=== PATIENT | female | born 1960 | race African-American/Black ===

== ENCOUNTER 2016-09-05 17:05 | Emergency (ER) | payer MEDICAID ==
[~2016-09-05] VITALS: Ht 160 cm; Wt 97.5 kg
[~2016-09-05 17:05] MED LIST: AMITRIPTYLINE H25 MG ORAL; ASPIRIN81 MG ORAL; AUGMENTIN 500-1 EACH ORAL; CIPROFLOXACIN500 M2 ORAL; IBUPROFEN600 MG ORAL; MIRTAZAPINE15 M3 ORAL; NAPROXEN375 M2 ORAL; NORCO 5-325 TA1 EACH ORAL; SIMVASTATIN5 MG ORAL; TRAMADOL HCL50 MG ORAL; VALIUM5 MG ORAL
[2016-09-05] MEDS ORDERED: Ketorolac 30mg Inj IM ONE (17:30)
[2016-09-05] MEDS ORDERED: Methocarbamol 750mg tab ORAL ONE (17:30)
[2016-09-05 18:30] VITALS: BP 115/75
[2016-09-05 19:02] VITALS: BP 115/75
--- NOTE | 2016-09-07 13:00 | Emergency Room Report ---
History of Present Illness General Chief Complaint: Back Pain-No Injury Source: Patient Present Illness HPI The patient is a 56 old female with history of chronic low back pain due to DJD and spinal stenosis presenting for lower back pain. The patient states that she usually takes tramadol and gabapentin for prescribed by her primary doctor but these medications have not been helping. It is described as a 9/10 dull ache to the mid lower back and radiates down the back of both legs. Pain worse with movement such as bending over and walking. She denies any recent injury that may have provoked this. She denies any other symptoms including numbness/ tingling, N, V, F, chills, CP, SOB, abd pain Allergies: Coded Allergies: No Known Allergies (Unverified , 01/03/13) Patient History Past Medical History: see triage record Pertinent Family History: none Reviewed Nursing Documentation: PMH: Agreed, PSxH: Agreed Nursing Documentation-PM Past Medical History: No History, Except For Hx Cardiac Problems: Yes - High Cholesterol, Hypothyroidism Review of Systems All Other Systems: negative except mentioned in HPI Physical Exam Vital Signs Date Time Temp Pulse Resp B/P Pulse Ox O2 Delivery O2 Flow Rate FiO2 09/05/16 17:16 98.1 74 16 119/78 100 Room Air Sp02 EP Interpretation: reviewed, normal General Appearance: no apparent distress, alert, GCS 15, non-toxic Head: normocephalic, atraumatic Eyes: bilateral eye PERRL, bilateral eye normal inspection Respiratory: chest non-tender, lungs clear, normal breath sounds, speaking full sentences Cardiovascular #1: regular rate, rhythm, no edema Musculoskeletal: back normal, gait/station normal, normal range of motion, tender - TTP over bilat lumbar paraspinous muscles Neurologic: alert, oriented x3, responsive, motor strength/tone normal, sensory intact, speech normal Psychiatric: judgement/insight normal, memory normal, mood/affect normal, no suicidal/homicidal ideation Skin: normal color, no rash, warm/dry, well hydrated Lymphatic: no adenopathy Medical Decision Making PA Attestation Dr. Smith is my supervising physician. Patient management was discussed with my supervising physician Diagnostic Impression: Primary Impression: Chronic lower back pain Qualified Codes: M54.5 - Low back pain; G89.29 - Other chronic pain ER Course The patient is a 56 old female with history of chronic low back pain presenting for lower back pain. Ddx considered include but not limited to lumbar strain, degenerative disease, chronic pain, narcotic dependency. PE: vitals WNL. NAD There is TTP over bilat lumbar paraspinous muscles. No midline tenderness. Normal gait. CURES report recent prescriptions for pain medications by pain management. Pt was informed of this. She is given Toradol and robaxin for pain and is feeling better. ER precautions given Last Vital Signs Date Time Temp Pulse Resp B/P Pulse Ox O2 Delivery O2 Flow Rate FiO2 09/05/16 19:02 98.0 77 16 115/75 99 Room Air Status: improved Disposition: HOME, SELF-CARE Condition: Improved Referrals: [facility],REFERRING (PCP) Patient Instructions: Back Pain, Adult Additional Instructions: I discussed my findings with the patient. All questions and concerns have been answered. Treatment and medication compliance have been addressed. I advised the patient that they need to follow up with PMD in 3-5 days. Return to ED if symptoms worsen, new symptoms arise, or if needed for any reason. Patient verbalized understanding of discharge instructions. Please follow up with pain management HARPER DE DIOS September 07, 2016 13:00
== END 2016-09-05 19:02 | disposition home or self-care (01) ==
LOC: EMR 17:50
DX: G89.29 Other chronic pain (principal); M54.5 Low back pain; M48.00 Spinal stenosis, site unspecified; M19.90 Unspecified osteoarthritis, unspecified site
CPT/HCPCS: 96372; 99283; J1885

== ENCOUNTER 2016-12-25 18:11 | Emergency (ER) | payer MEDICAID ==
[~2016-12-25] VITALS: Ht 160 cm; Wt 92.1 kg
[2016-12-25] MEDS ORDERED: Methocarbamol 750mg tab ORAL ONE (18:45)
[2016-12-25] MEDS ORDERED: Ketorolac 60mg Inj IM ONE (18:45)
[2016-12-25] MEDS ORDERED: IBUPROFEN600 MG ORAL (20:17)
[2016-12-25] MEDS ORDERED: ROBAXIN-750750 MG PO (20:17)
[2016-12-25 20:20] VITALS: BP 134/72
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
--- NOTE | 2016-12-26 10:46 | Diagnostic Imaging Report ---
Indication: PAIN Technique: 3 views of the right knee Comparison: None Findings:There are medial osteophytes. Is minimal medial compartmental degenerative joint space narrowing. No acute fractures. No dislocations. No suprapatellar effusion. There are patellofemoral osteophytes. Impression:Degenerative changes. No acute bony trauma
--- NOTE | 2016-12-26 10:47 | Diagnostic Imaging Report ---
Indication: PAIN Technique: 3 views of the left knee Comparison: None Findings:There are medial and lateral compartment osteophytes. Joint spaces are preserved. No acute fractures. No dislocations. No suprapatellar effusion. Impression:Mild degenerative changes. No acute bony trauma
== END 2016-12-25 20:20 | disposition home or self-care (01) ==
LOC: EMR 18:25
DX: T14.8 Other injury of unspecified body region (principal); V43.52XA Car driver injured in collision with other type car in traffic accident, initial encounter; Y93.9 Activity, unspecified; Y92.410 Unspecified street and highway as the place of occurrence of the external cause; M25.562 Pain in left knee; M25.561 Pain in right knee; M25.762 Osteophyte, left knee; M25.761 Osteophyte, right knee
CPT/HCPCS: 72125; 96372; 99284

== ENCOUNTER 2017-01-25 18:08 | Emergency (ER) | payer MEDICAID ==
[~2017-01-25] VITALS: Ht 160 cm; Wt 90.7 kg
[~2017-01-25 18:08] MED LIST changes: +ROBAXIN-750750 MG PO
[2017-01-25 19:10] VITALS: BP 148/88
[2017-01-25] MEDS ORDERED: Ketorolac 60mg Inj IM ONE (19:15)
[2017-01-25] MEDS ORDERED: Norco 5mg/325mg tab ORAL ONE (20:00)
[2017-01-25] MEDS ORDERED: ACETAMINOPHEN-1 EAC1 ORAL (20:28)
[2017-01-25] MEDS ORDERED: IBUPROFEN600 MG ORAL (20:28)
[2017-01-25 20:34] VITALS: BP 129/88
--- NOTE | 2017-01-25 21:04 | Emergency Room Report ---
History of Present Illness General Chief Complaint: Back Pain-No Injury Source: Patient Present Illness HPI The patient is a 56 old female presenting for back pain. She states that she has a chronic history of back pain but has not been prescribed medications. She was seen in this emergency department recently and given prescription for Motrin and Robaxin which she states did not help. She states that ice pack help sent home. Pain is an 8/10 dull ache to the mid back and is worse with movement. She denies any radiating pain. She denies any numbness or tingling. She denies any other symptoms Allergies: Coded Allergies: No Known Allergies (Unverified , 01/03/13) Patient History Past Medical History: see triage record Pertinent Family History: none Reviewed Nursing Documentation: PMH: Agreed, PSxH: Agreed Nursing Documentation-PMH Hx Cardiac Problems: Yes - High Cholesterol, Hypothyroidism Review of Systems All Other Systems: negative except mentioned in HPI Physical Exam Vital Signs Date Time Temp Pulse Resp B/P (MAP) Pulse Ox O2 Delivery O2 Flow Rate FiO2 01/25/17 18:38 98.2 70 16 148/88 100 Room Air Sp02 EP Interpretation: reviewed, normal General Appearance: no apparent distress, alert, GCS 15, non-toxic Head: normocephalic, atraumatic Eyes: bilateral eye normal inspection, bilateral eye PERRL ENT: hearing grossly normal, normal pharynx, no angioedema, normal voice Neck: full range of motion, supple/symm/no masses Respiratory: chest non-tender, lungs clear, normal breath sounds, speaking full sentences Cardiovascular #1: regular rate, rhythm, no edema Musculoskeletal: gait/station normal, tender - TTP over the R thoracic paraspinal muscles Neurologic: alert, oriented x3, responsive, motor strength/tone normal, sensory intact, speech normal Psychiatric: judgement/insight normal, memory normal, mood/affect normal, no suicidal/homicidal ideation Skin: normal color, no rash, warm/dry, well hydrated Lymphatic: no adenopathy Medical Decision Making PA Attestation Dr. Huggins is my supervising physician. Patient management was discussed with my supervising physician Diagnostic Impression: Primary Impression: Chronic lower back pain Qualified Codes: M54.5 - Low back pain; G89.29 - Other chronic pain ER Course The patient is a 56 old female presenting for back pain Ddx considered include but not limited to lumbar strain, degenerative disease, epidural abscess, cauda equina, chronic pain, narcotic dependency. PE: NAD TTP over the R thoracic paraspinal muscles. No step-offs. Normal gait The patient is given Toradol initially and states pain has not decreased. She is then given one [place] She will be DC'ed home and needs to FU with PMD. She states she has appt on 01/28. ER precautions given Last Vital Signs Date Time Temp Pulse Resp B/P (MAP) Pulse Ox O2 Delivery O2 Flow Rate FiO2 01/25/17 20:34 98.2 73 16 129/88 100 Room Air Status: improved Disposition: HOME, SELF-CARE Condition: Improved Scripts Acetaminophen With Codeine (T#3) (TYLENOL #3 TAB*) Y Tab 1 TAB ORAL Q6HR Y for For Pain, #15 TAB Prov: HARPER DE DIOS 01/25/17 Ibuprofen* (MOTRIN*) 600 Mg Tablet 600 MG ORAL Q8H Y for For Pain, #30 TAB 0 Refills Prov: HARPER DE DIOS 01/25/17 Patient Instructions: Back Pain, Adult Additional Instructions: I discussed my findings with the patient. All questions and concerns have been answered. Treatment and medication compliance have been addressed. I advised the patient that they need to follow up with PMD in 3-5 days. Return to ED if symptoms worsen, new symptoms arise, or if needed for any reason. Patient verbalized understanding of discharge instructions. HARPER DE DIOS Jan 25, 2017 21:04
== END 2017-01-25 20:34 | disposition home or self-care (01) ==
LOC: EMR 19:08
DX: M54.5 Low back pain (principal); G89.29 Other chronic pain; E03.9 Hypothyroidism, unspecified
CPT/HCPCS: 96372; 99284

== ENCOUNTER 2017-12-17 12:56 | Emergency (ER) | payer MEDICAID ==
[~2017-12-17] VITALS: Ht 160 cm; Wt 99.8 kg
[~2017-12-17 12:56] MED LIST changes: +ACETAMINOPHEN-1 EAC1 ORAL
[2017-12-17 13:24] VITALS: BP 141/72
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
[2017-12-17] MEDS ORDERED: Lidocaine 1% MPF 10mg/ml 5ml IM ONE (13:45)
[2017-12-17] MEDS ORDERED: Lidocaine 1% MPF 10mg/ml 5ml ONE (13:51)
[2017-12-17] MEDS ORDERED: Lidocaine 1% MPF 10mg/ml 5ml HHN ONE (14:00)
[2017-12-17] MEDS ORDERED: ALBUTEROL SULF8.5 GM INH (14:53)
[2017-12-17] MEDS ORDERED: TYLENOL EXTRA500 MG ORAL (14:53)
[2017-12-17 15:49] VITALS: BP 138/76
== END 2017-12-17 15:54 | disposition home or self-care (01) ==
LOC: EMR 13:35
DX: T54.91XA Toxic effect of unspecified corrosive substance, accidental (unintentional), initial encounter (principal); R07.0 Pain in throat; Y92.9 Unspecified place or not applicable; Y92.89 Other specified places as the place of occurrence of the external cause
CPT/HCPCS: 94640; 94664; 99283

== ENCOUNTER 2018-11-22 17:22 | Emergency (ER) | payer MEDICAID ==
[~2018-11-22] VITALS: Ht 160 cm; Wt 97.5 kg
[~2018-11-22 17:22] MED LIST changes: +ALBUTEROL SULF8.5 GM INH; +TYLENOL EXTRA500 MG ORAL
[2018-11-22 17:31] VITALS: BP 134/83
[2018-11-22] MEDS ORDERED: Ketorolac 60mg Inj IM ONE (17:45)
[2018-11-22] MEDS ORDERED: ROBAXIN-750750 MG PO (17:49)
--- NOTE | 2018-11-22 17:49 | Emergency Room Report ---
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 Allergies: Coded Allergies: No Known Allergies (Unverified , 01/03/13) Patient History Past Medical History: see triage record Now: No Reviewed Nursing Documentation: PMH: Agreed; PSxH: Agreed Nursing Documentation-PMH Past Medical History: No History, Except For Hx Cardiac Problems: No - hyperthyroidism, high cholesterol Hx Hypertension: No Hx Pacemaker: No Hx Asthma: No Hx COPD: No Hx Diabetes: No Hx Cancer: No Hx Gastrointestinal Problems: Yes - IBS Hx Dialysis: No Hx Neurological Problems: Yes - chronic pain, osteroarthritis, bulgind disc, DJD Hx Cerebrovascular Accident: No Hx Seizures: No Review of Systems All Other Systems: negative except mentioned in HPI Physical Exam Vital Signs Date Time Temp Pulse Resp B/P (MAP) Pulse Ox O2 Delivery O2 Flow Rate FiO2 11/22/18 17:31 98.2 87 19 134/83 98 Room Air Sp02 EP Interpretation: reviewed, normal General Appearance: well appearing, no apparent distress, alert Head: normocephalic, atraumatic Eyes: bilateral eye PERRL, bilateral eye EOMI ENT: uvula midline, moist mucus membranes Neck: supple, thyroid normal, supple/symm/no masses Respiratory: lungs clear, no respiratory distress, no retraction, no accessory muscle use Cardiovascular #1: normal peripheral pulses, regular rate, rhythm, no edema, no gallop, no murmur Gastrointestinal: non tender, soft, no guarding, no rebound Musculoskeletal: other - Right lower tube backer to palpation, left lower tube backer to palpation, no step-offs, patient able to ambulate without any issues with a cane Neurologic: alert, oriented x3 Psychiatric: mood/affect normal Skin: no rash, warm/dry Medical Decision Making Diagnostic Impression: Primary Impression: Chronic lower back pain ER Course 58-year-old female with chronic lower back pain, requesting a shot of Toradol The patient presents with acute onset of back pain after dancing. Clinically this patient can be ruled out for serious pathology given there is a completely normal neurological exam, no history of IV drug use, and no history of bowel or bladder incontinence, no perianal numbness/tingling, no constipation or urinary retention. Once the patient's pain was adequately controlled, the patient was able to ambulate and be discharged in stable condition with anticipatory guidance provided. Disposition home w/ return precautions Last Vital Signs Date Time Temp Pulse Resp B/P (MAP) Pulse Ox O2 Delivery O2 Flow Rate FiO2 11/22/18 17:31 98.2 87 19 134/83 (100) 98 Room Air Disposition: HOME, SELF-CARE Condition: Improved Scripts Methocarbamol* (ROBAXIN-750*) 750 Mg Tablet 750 MG PO TID, #21 TAB 0 Refills Prov: Dada Miranda MD 11/22/18 Referrals: [facility]. [facility] Patient Instructions: Back Pain, Adult Additional Instructions: The patient was provided with discharge instructions, notified to follow-up with a primary care doctor and or specialist in the next 24-48 hours, and to return to the ED if they have worsening of their symptoms. Please note that this report is being documented using [employer] technology. This can lead to erroneous entry secondary to incorrect interpretation by the dictating instrument. Dada Miranda MD Nov 22, 2018 17:49
[2018-11-22 17:57] VITALS: BP 129/80
--- NOTE | 2018-11-22 17:57 | NUR ---
ER DISCHARGE NOTE: Pt was seen due to lower back pain. Patient is cleared to be discharged per ERMD, pt is aox4, on room air, with stable vital signs. pt was given dc and prescription instructions, pt was able to verbalize understanding, pt id band removed without complications. pt is able to ambulate with steady gait. pt took all belongings.
== END 2018-11-22 17:57 | disposition home or self-care (01) ==
LOC: EMR 17:50
DX: M54.5 Low back pain (principal); G89.29 Other chronic pain; E78.00 Pure hypercholesterolemia, unspecified; M19.90 Unspecified osteoarthritis, unspecified site; K58.9 Irritable bowel syndrome, unspecified
CPT/HCPCS: 96372; 99283

== ENCOUNTER 2019-01-26 10:26 | Emergency (ER) | payer MEDICAID ==
[~2019-01-26] VITALS: Ht 160 cm; Wt 98.4 kg
[2019-01-26] MEDS ORDERED: PREDNISONE50 MG ORAL (10:37)
[2019-01-26] MEDS ORDERED: LEVOTHYROXINE75 MCG ORAL (10:37)
[2019-01-26] MEDS ORDERED: METFORMIN HCL500 M1 ORAL (10:37)
--- NOTE | 2019-01-26 10:42 | NUR ---
ED Nurse Note: Patient walked in to ER c/o generalized pain on her s/p mechanical fall. Per patient she was feeling good in the morning around 09:30 and decided to use serena totter for stretching. The patient forget to check the setting of the machine, unaware that it was set up for advance exerise not for beginning. Patient stated that serena totter went upside down and lost her balance. She hold on to the hand rail. Patient stated that she did not her head or any part of the body and slid all the way down gradually. Noted wth one bruise on her outer upper arm approx 2x2 and small scratch approx 0.1x0.1 on her inner forearm. No dizziness noted at this time. Able to ambulate with the use of cane on her right hand.
[2019-01-26 10:45] VITALS: BP 128/66
--- NOTE | 2019-01-26 11:14 | NUR ---
ED Nurse Note: patient went to the CT room for CT scan of the head and spine with no contrast
--- NOTE | 2019-01-26 11:32 | NUR ---
ED Nurse Note: Patient went back to the room, laying in bed comfortably
--- NOTE | 2019-01-26 12:08 | Diagnostic Imaging Report ---
Indication: Neck pain status post fall Technique: Spiral acquisitions obtained through the cervical spine. No IV contrast utilized. Multiplanar reconstructions were generated. Total dose length product 727 mGycm. CTDIvol(s) 32 mGy. Dose reduction achieved using automated exposure control. Comparison: 12/25/2016 Findings: Bony alignment is normal. Vertebral body heights are preserved. No prevertebral soft tissue swelling. No acute fractures. No dislocations. At C4-5, there is degenerative disc narrowing. There is moderate to severe right and mild left neural foraminal stenosis. No significant disc bulge or protrusion or spinal stenosis. At C5-6, there is degenerative disc narrowing. There is moderate to severe left and mild right neural foraminal stenosis. No significant disc bulge or protrusion or spinal stenosis. At C6-7, there is mild neural foraminal stenosis on the right. At the remaining disc levels, no significant disc bulge or protrusion, spinal stenosis, or neural foraminal stenosis. The included extraspinal soft tissues are unremarkable. When compared to the prior exam, degenerative changes have progressed Impression: No acute bony trauma Degenerative changes as detailed above on a level by level basis The CT scanner at [facility] is accredited by the [employer] and the scans are performed using protocols designed to limit radiation exposure to as low as reasonably achievable to attain images of sufficient resolution adequate for diagnostic evaluation.
--- NOTE | 2019-01-26 12:10 | Diagnostic Imaging Report ---
Indications: Head trauma, pain Technique: Spiral acquisitions obtained through the brain. Angled axial and coronal 5 x 5 mm slices were reconstructed. Total dose length product 1280 mGycm. CTDI vol(s) 16 mGy. Dose reduction achieved using automated exposure control Comparison: 09/26/2010 Findings: No acute intracranial hemorrhage or edema. No mass effect nor midline shift. Normal ontiveros-white differentiation. Normal size ventricles and extra axial CSF spaces. Visualized orbits are unremarkable. The sinuses are clear. The mastoids are clear. No significant interim change Impression: Negative The CT scanner at [facility] is accredited by the [employer] and the scans are performed using protocols designed to limit radiation exposure to as low as reasonably achievable to attain images of sufficient resolution adequate for diagnostic evaluation.
--- NOTE | 2019-01-26 12:33 | Emergency Room Report ---
History of Present Illness General Chief Complaint: Multiple Trauma/Fall Source: Patient, Medical Record Present Illness Allergies: Coded Allergies: No Known Allergies (Unverified , 01/03/13) Patient History Past Medical History: see triage record Last Menstrual Period: menopause Reviewed Nursing Documentation: PMH: Agreed; PSxH: Agreed Nursing Documentation-PMH Past Medical History: No History, Except For Hx Cardiac Problems: No - hyperthyroidism, high cholesterol Hx Hypertension: No Hx Pacemaker: No Hx Asthma: No Hx COPD: No Hx Diabetes: No Hx Cancer: No Hx Gastrointestinal Problems: Yes - IBS Hx Dialysis: No Hx Neurological Problems: Yes - chronic pain, osteroarthritis, bulgind disc, DJD Hx Cerebrovascular Accident: No Hx Seizures: No Review of Systems All Other Systems: negative except mentioned in HPI Physical Exam Vital Signs Date Time Temp Pulse Resp B/P (MAP) Pulse Ox O2 Delivery O2 Flow Rate FiO2 01/26/19 10:31 98.4 76 18 159/85 (109) 98 Room Air Sp02 EP Interpretation: reviewed, normal General Appearance: no apparent distress, alert, non-toxic Head: normocephalic Eyes: bilateral eye normal inspection, bilateral eye PERRL, bilateral eye EOMI ENT: normal ENT inspection, hearing grossly normal, normal pharynx, no angioedema, normal voice, moist mucus membranes Neck: normal inspection, full range of motion, supple, supple/symm/no masses Respiratory: chest non-tender, lungs clear, normal breath sounds, chest symmetrical, palpation of chest normal Cardiovascular #1: normal peripheral pulses, regular rate, rhythm Cardiovascular #2: 2+ radial (R), 2+ radial (L) Gastrointestinal: normal inspection, non tender, soft, no mass, no guarding, no rebound Rectal: deferred Genitourinary: normal inspection, no CVA tenderness Musculoskeletal: back normal, gait/station normal, normal range of motion, non- tender, no calf tenderness, other - No C, T, L-spine deformities tenderness or step-offs Neurologic: alert, responsive, tooling inspector III-XII nml as tested, motor strength/tone normal, sensory intact, speech normal Psychiatric: judgement/insight normal, memory normal, mood/affect normal Skin: no rash, other - No abrasions, contusions Lymphatic: no adenopathy Medical Decision Making Diagnostic Impression: Primary Impression: Muscle strain ER Course Patient reports he suffered a fall, but does not have any visible injuries, and she has chronic pain with pain all over, no signs of trauma, normal exam with no bony tenderness anywhere, normal head and C-spine CT. Will discharge. CT/MRI/US Diagnostic Results CT/MRI/US Diagnostic Results : Imaging Test Ordered: CT head and C-spine Impression No acute disease Last Vital Signs Date Time Temp Pulse Resp B/P (MAP) Pulse Ox O2 Delivery O2 Flow Rate FiO2 01/26/19 10:45 97.8 20 128/66 95 Room Air 01/26/19 10:45 60 Disposition: HOME, SELF-CARE Condition: Stable Referrals: NON PHYSICIAN (PCP) CHEPE RIVERA M.D Jan 26, 2019 12:33
[2019-01-26 12:54] VITALS: BP 166/89
--- NOTE | 2019-01-26 12:56 | NUR ---
ER DISCHARGE NOTE: Patient is cleared to be discharged per ERMD, Pt is aox4, on room ai. Patient was given dc instruction. Patient was able to verbalize understanding. ID band removed. Patient is able to ambulate with steady gait. Patient took all belongings.
== END 2019-01-26 12:57 | disposition home or self-care (01) ==
LOC: EMR 11:10
DX: T14.8XXA Other injury of unspecified body region, initial encounter (principal); M54.2 Cervicalgia; R51 Headache; G89.29 Other chronic pain; E05.90 Thyrotoxicosis, unspecified without thyrotoxic crisis or storm; E78.00 Pure hypercholesterolemia, unspecified; K58.9 Irritable bowel syndrome, unspecified; M19.90 Unspecified osteoarthritis, unspecified site
CPT/HCPCS: 70450; 72125; Z7502; 99284

== ENCOUNTER 2019-04-22 01:28 | Emergency (ER) | payer MEDICAID ==
[~2019-04-22] VITALS: Ht 160 cm; Wt 102.1 kg
[~2019-04-22 01:28] MED LIST changes: +LEVOTHYROXINE75 MCG ORAL; +METFORMIN HCL500 M1 ORAL; +PREDNISONE50 MG ORAL
[2019-04-22 01:43] VITALS: BP 125/69
--- NOTE | 2019-04-22 01:45 | NUR ---
ED Nurse Note: Patient presents as a walk-in with complaints of back pain since .
[2019-04-22] MEDS ORDERED: Ketorolac 60mg Inj IM ONE (02:15)
[2019-04-22] MEDS ORDERED: NORCO 5-325 TA1 EACH ORAL (02:33)
--- NOTE | 2019-04-22 02:33 | Emergency Room Report ---
History of Present Illness General Chief Complaint: Back Pain-No Injury Source: Patient, Medical Record Present Illness HPI This is a 58-year-old female with history of chronic pain from arthritis. 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 She presents with chief complaint of lower back pain. Is a chronic problem but worsened since [place]. She is taking Ultram is not helping much. No trauma. Pain is 8 out of 10. No fever chills but no nausea no vomiting. No radiation of the pain. No incontinence of bowel or urine. Denies fever chills. Pain is 8 out of 10. Worse with movement. Better with rest. Allergies: Coded Allergies: No Known Allergies (Unverified , 01/03/13) Patient History Past Medical History: see triage record, old chart reviewed Past Surgical History: other Pertinent Family History: none Social History: Denies: smoking Immunizations: other Reviewed Nursing Documentation: PMH: Agreed; PSxH: Agreed Nursing Documentation-PMH Hx Cardiac Problems: No - hyperthyroidism, high cholesterol Hx Hypertension: No Hx Pacemaker: No Hx Asthma: No Hx COPD: No Hx Diabetes: No Hx Cancer: No Hx Gastrointestinal Problems: Yes - IBS Hx Dialysis: No Hx Neurological Problems: Yes - chronic pain, osteroarthritis, bulgind disc, DJD Hx Cerebrovascular Accident: No Hx Seizures: No Review of Systems Eye: Denies: eye pain, blurred vision ENT: Denies: ear pain, nose congestion, throat swelling Respiratory: Denies: cough, shortness of breath Cardiovascular: Denies: chest pain, palpitations Gastrointestinal: Denies: abdominal pain, diarrhea, nausea, vomiting Musculoskeletal: Reports: back pain; Denies: joint pain Skin: Denies: rash Neurological: Denies: headache, numbness Endocrine: Denies: increased thirst, increased urine Hematologic/Lymphatic: Denies: easy bruising All Other Systems: negative except mentioned in HPI Physical Exam Vital Signs Date Time Temp Pulse Resp B/P (MAP) Pulse Ox O2 Delivery O2 Flow Rate FiO2 04/22/19 01:34 97.9 98 18 125/69 (87) 96 Room Air Vitals normal Sp02 EP Interpretation: reviewed, normal General Appearance: well appearing, no apparent distress, alert Head: normocephalic, atraumatic Eyes: bilateral eye PERRL, bilateral eye EOMI ENT: hearing grossly normal, normal pharynx Neck: full range of motion, supple, no meningismus Respiratory: chest non-tender, lungs clear, normal breath sounds Cardiovascular #1: regular rate, rhythm, no murmur Gastrointestinal: normal bowel sounds, non tender, no mass, no organomegaly, no bruit, non-distended Musculoskeletal: back normal - Diffuse lower back tenderness, normal range of motion, gait/station normal Psychiatric: mood/affect normal Medical Decision Making Diagnostic Impression: Primary Impression: Low back pain Qualified Codes: M54.5 - Low back pain ER Course Patient with lower back pain. No evidence of cauda equina syndrome, spinal epidural abscess or neoplastic process. Will discharge home. Last Vital Signs Date Time Temp Pulse Resp B/P (MAP) Pulse Ox O2 Delivery O2 Flow Rate FiO2 04/22/19 01:43 97.9 87 18 125/69 96 Room Air Status: improved Disposition: HOME, SELF-CARE Condition: Stable Scripts Hydrocodone Bit/Acetaminophen 5-325* (NORCO 5-325*) 1 Each Tablet 1 TAB ORAL Q6H PRN for For Pain, #20 TAB 0 Refills Prov: Ezekiel Dominguez MD 04/22/19 Patient Instructions: Back Pain, Adult Additional Instructions: Follow-up with your doctor in 7 days. You may benefit from a pain specialist referral. Return if worse. Ezekiel Dominguez MD Apr 22, 2019 02:33
[2019-04-22 02:36] VITALS: BP 125/69
--- NOTE | 2019-04-22 02:36 | NUR ---
ED Nurse Note: Patietn cleared for discharge by ERMD , patient verbalized understanding of discharge instructions. ID band removed. Patient is A&Ox4 and ambulatory with steady gait. Patient departed with all belongings to personal vehicle.
== END 2019-04-22 02:36 | disposition home or self-care (01) ==
LOC: EMR 01:49
DX: M54.5 Low back pain (principal); E78.00 Pure hypercholesterolemia, unspecified; M19.90 Unspecified osteoarthritis, unspecified site; E05.90 Thyrotoxicosis, unspecified without thyrotoxic crisis or storm
CPT/HCPCS: 96372; Z7502; 99283

== ENCOUNTER 2020-02-26 13:46 | Emergency (ER) | payer MEDICAID ==
[~2020-02-26] VITALS: Ht 160 cm; Wt 90.7 kg
[~2020-02-26 13:46] MED LIST changes: +ALBUTEROL SULF8.5 G1 INH; +AMITRIPTYLINE25 MG ORAL; +FERROUS SULFAT325 MG ORAL; +MIRALAX17 G2 ORAL; +PENNSAID112 GM TP; +SENNA PLUS 8.61 EACH PO; +TUMS200 M1 PO
--- NOTE | 2020-02-26 14:27 | Emergency Room Report ---
History of Present Illness General Chief Complaint: Abnormal Labs Source: Patient Present Illness HPI Patient is a 59-year-old female sent in from doctor's office for low hemoglobin. Reportedly had a hemoglobin less than 6. Previous history of blood transfusions because of iron deficiency anemia. Had prior ER visit reports having generalized weakness. Denies any shortness of breath. Reports having gradual worsening memory. States that she had been scheduled for a colonoscopy. Patient not been vomiting or having any diarrhea. Denies any recent bleeding episodes. Had gradually drop in hemoglobin over time. Allergies: Coded Allergies: No Known Allergies (Unverified , 01/03/13) COVID-19 Screening Contact w/high risk pt: No Experienced COVID-19 symptoms?: No COVID-19 Testing performed AREA SAFETY MANAGER: No Patient History Past Medical History: see triage record Reviewed Nursing Documentation: PMH: Agreed; PSxH: Agreed Nursing Documentation-PMH Past Medical History: No History, Except For Hx Cardiac Problems: No - hyperthyroidism, high cholesterol anemia Hx Hypertension: No Hx Pacemaker: No Hx Asthma: No Hx COPD: No Hx Diabetes: No Hx Cancer: No Hx Gastrointestinal Problems: Yes - IBS Hx Dialysis: No Hx Neurological Problems: Yes - chronic pain, osteroarthritis, bulgind disc, DJD Hx Cerebrovascular Accident: No Hx Seizures: No Review of Systems All Other Systems: negative except mentioned in HPI Physical Exam Vital Signs Date Time Temp Pulse Resp B/P (MAP) Pulse Ox O2 Delivery O2 Flow Rate FiO2 02/26/20 13:52 97.7 95 17 136/55 (82) 97 Room Air Sp02 EP Interpretation: reviewed, normal General Appearance: normal inspection, well appearing, no apparent distress, alert, GCS 15, non-toxic Head: atraumatic ENT: normal ENT inspection, hearing grossly normal, normal voice Neck: normal inspection, full range of motion, supple, no bony tend Respiratory: normal inspection, lungs clear, normal breath sounds, no resp iratory distress, no retraction, no wheezing Cardiovascular #1: regular rate, rhythm, no edema Gastrointestinal: normal inspection, normal bowel sounds, non tender, soft, no guarding, no hernia Genitourinary: no CVA tenderness Musculoskeletal: normal inspection, back normal, normal range of motion Neurologic: alert, motor strength/tone normal, career services director III-XII nml as tested, oriented x3, responsive, speech normal, normal inspection Psychiatric: normal inspection, judgement/insight normal, mood/affect normal Medical Decision Making Diagnostic Impression: Primary Impression: Anemia ER Course Patient present for generalized weakness. Differential diagnosis include was not limited to anemia, electrolyte abnormality, coagulopathy among others. Because of complexity of patient's case laboratory tests were ordered.laboratory testing showed significant anemia. Patient consented for blood and has had previous transfusions.Dr. Srinivasan was contacted and agreed to accept the patient as transfer to [facility] [place]. Labs Test 02/26/20 14:15 02/26/20 14:50 Sodium Level 135 MMOL/L (136-145) Potassium Level 4.8 MMOL/L (3.5-5.1) Chloride Level 101 MMOL/L (98-107) Carbon Dioxide Level 28 MMOL/L (21-32) Anion Gap 6 mmol/L (5-15) Blood Urea Nitrogen 16 mg/dL (7-18) Creatinine 1.0 MG/DL (0.55-1.30) Estimat Glomerular Filtration Rate > 60 mL/min (>60) Glucose Level 113 MG/DL (74-106) Calcium Level 8.6 MG/DL (8.5-10.1) Total Bilirubin 1.2 MG/DL (0.2-1.0) Direct Bilirubin 0.3 MG/DL (0.0-0.3) Aspartate Amino Transf (AST/SGOT) 89 U/L (15-37) Alanine Aminotransferase (ALT/SGPT) 46 U/L (12-78) Alkaline Phosphatase 60 U/L (46-116) Total Protein 6.3 G/DL (6.4-8.2) Albumin 4.0 G/DL (3.4-5.0) Globulin 2.3 g/dL White Blood Count 3.2 K/UL (4.8-10.8) Red Blood Count 1.88 M/UL (4.20-5.40) Hemoglobin 5.4 G/DL (12.0-16.0) Hematocrit 16.2 % (37.0-47.0) Mean Corpuscular Volume 86 FL (80-99) Mean Corpuscular Hemoglobin 28.9 PG (27.0-31.0) Mean Corpuscular Hemoglobin Concent 33.5 G/DL (32.0-36.0) Red Cell Distribution Width 32.0 % (11.6-14.8) Platelet Count 186 K/UL (150-450) Mean Platelet Volume 8.3 FL (6.5-10.1) Neutrophils (%) (Auto) % (45.0-75.0) Lymphocytes (%) (Auto) % (20.0-45.0) Monocytes (%) (Auto) % (1.0-10.0) Eosinophils (%) (Auto) % (0.0-3.0) Basophils (%) (Auto) % (0.0-2.0) Prothrombin Time 11.8 SEC (9.30-11.50) Prothromb Time International Ratio 1.1 (0.9-1.1) Activated Partial Thromboplast Time 20 SEC (23-33) Last Vital Signs Date Time Temp Pulse Resp B/P (MAP) Pulse Ox O2 Delivery O2 Flow Rate FiO2 02/26/20 13:52 97.7 95 17 136/55 (82) 97 Room Air Status: unchanged Disposition: SHORT-TERM HOSP Condition: Improved Shaw Dye MD Feb 26, 2020 14:27
[2020-02-26 14:30] VITALS: BP 136/55
[2020-02-26 14:52] LABS: ANION GAP 6 mmol/L (5-15); CARBON DIOXIDE 28 MMOL/L (21-32); CHLORIDE 101 MMOL/L (98-107); POTASSIUM 4.8 MMOL/L (3.5-5.1); SODIUM 135 MMOL/L (136-145)
[2020-02-26 15:02] LABS: BLOOD UREA NITROGEN 16 mg/dL (7-18); CALCIUM 8.6 MG/DL (8.5-10.1)
[2020-02-26 15:09] LABS: HEMATOCRIT 16.2 % (37.0-47.0); MEAN CORPUSCULAR VOLUME 86 FL (80-99); PLATELET COUNT 186 K/UL (150-450); RED BLOOD COUNT 1.88 M/UL (4.20-5.40); WHITE BLOOD COUNT 3.2 K/UL (4.8-10.8)
[2020-02-26 15:15] LABS: INR 1.1 (0.9-1.1)
[2020-02-26 15:20] LABS: ALANINE AMINOTRANSFERASE 46 U/L (12-78); ALKALINE PHOSPHATASE 60 U/L (46-116); ASPARTATE AMINO TRANSFERASE 89 U/L (15-37); BILIRUBIN,TOTAL 1.2 MG/DL (0.2-1.0)
[2020-02-26 15:21] LABS: BILIRUBIN,DIRECT 0.3 MG/DL (0.0-0.3)
[2020-02-26 15:42] LABS: HEMOGLOBIN 5.4 G/DL (12.0-16.0)
[2020-02-26 17:10] VITALS: BP 114/59
[2020-02-26 19:10] VITALS: BP 122/71
[2020-02-26 22:08] VITALS: BP 138/67
== END 2020-02-26 22:08 | disposition short-term general hospital (02) ==
LOC: EMR 14:49
DX: D64.9 Anemia, unspecified (principal); E78.00 Pure hypercholesterolemia, unspecified; M19.90 Unspecified osteoarthritis, unspecified site
CPT/HCPCS: 36415; 80053; 82248; 85007; 85025; 85610; 85730; 86850; 86900; 86901; 86920; P9016; Z7502; 99285